=== PATIENT | male | born 1985 | race Caucasian/White ===

== ENCOUNTER 2017-10-26 21:18 | Emergency (ER) | payer OTHER ==
[2017-10-26 21:29] VITALS: BP 126/74
[2017-10-26] MEDS ORDERED: SULFAMETH/TRIMETH DS 800/160 MG TABLET PO STA (22:40)
--- NOTE | 2017-10-26 22:43 | ED Physician Documentation ---
History of Present Illness - Stated complaint Stated Complaint: R THIGH PX/WOUND - Chief complaint Chief Complaint: General - History obtained from History obtained from: Patient - History of Present Illness Timing: Other (3 days worth of a painful lesion on the back of the right thigh. He has similar lesion if a couple of years ago in the same spot that turned out to be MRSA. The leg hurts surrounding that but denies fevers, chills, nausea.) Review of Systems Constitutional: denies: Fever, Chills Cardiac: reports: Reviewed and negative Respiratory: reports: Reviewed and negative PD PAST MEDICAL HISTORY - Past Medical History Past Medical History: No Cardiovascular: None Respiratory: None Neuro: None Endocrine/Autoimmune: None GI: None : None HEENT: None Psych: None Musculoskeletal: None Derm: None - Past Surgical History Past Surgical History: No - Present Medications Home Medications: Ambulatory Orders Medication Instructions Recorded Confirmed Sulfamethoxazole/Trimethoprim 1 each PO BID #14 tablet 10/26/17 [Sulfamethoxazole-Tmp Ds Tablet] - Allergies Allergies/Adverse Reactions: Allergies Allergy/AdvReac Type Severity Reaction Status Date / Time No Known Drug Allergies Allergy Verified 10/26/17 21:29 - Social History Does the pt smoke?: Yes Smoking Status: Current every day smoker Does the pt drink ETOH?: No Does the pt have substance abuse?: No - Immunizations Immunizations are current?: Yes - POLST Patient has POLST: No PD ED PE NORMAL - Vitals Vital signs reviewed: Yes - General General: Alert and oriented X 3, No acute distress - Extremities Extremities: Other (On the back of the right thigh there is an area of folliculitis that is a little larger than a quarter with some surrounding cellulitis. He was debrided with a needle during examination a culture was taken. It is not deep enough for formal incision and drainage.) - Neuro Neuro: Alert and oriented X 3, Normal speech Results - Vitals Vitals: Vital Signs - 24 hr 10/26/17 21:24 Temperature 37.3 C Heart Rate 63 Respiratory 16 Rate Blood Pressure 126/74 O2 Saturation 99 Oxygen O2 Source Room air PD MEDICAL DECISION MAKING - Sepsis Event Vital Signs: Vital Signs - 24 hr 10/26/17 21:24 Temperature 37.3 C Heart Rate 63 Respiratory 16 Rate Blood Pressure 126/74 O2 Saturation 99 Oxygen O2 Source Room air Departure - Departure Disposition: 01 Home, Self Care Clinical Impression: Folliculitis Condition: Good Record reviewed to determine appropriate education?: Yes Instructions: ED Folliculitis Prescriptions: Sulfamethoxazole/Trimethoprim [Sulfamethoxazole-Tmp Ds Tablet] 1 each PO BID # 14 tablet Comments: We are performing a wound culture, the results should be done in 48-72 hours. If antibiotic change is necessary we will call you. Return if worse in the meantime, especially if you develop increased pain, fevers, cannot keep down the medication. Otherwise follow-up with your physician in approximately 2-3 days.
== END 2017-10-26 23:04 | disposition home or self-care (01) ==
LOC: ED 21:18
DX: L73.9 Follicular disorder, unspecified (principal); F17.200 Nicotine dependence, unspecified, uncomplicated; L03.115 Cellulitis of right lower limb
CPT/HCPCS: 87070; 87205; 99283; A9270